=== PATIENT | male | born 1960 | race Caucasian/White ===

== ENCOUNTER 2023-06-15 10:43 | Outpatient (OUT) | payer OTHER, SELFPAY | END 2023-06-15 10:44 | disposition home or self-care (01) | LOC: LAB 10:48 | PROVIDERS: PCP Family Medicine | DX: L40.0 Psoriasis vulgaris (principal) | CPT/HCPCS: 36415; 86480 ==

== ENCOUNTER 2023-06-16 10:29 | Outpatient (OUT) | payer OTHER, SELFPAY ==
[2023-06-19 06:08] LABS: QuantiFERON-TB Gold Plus Negative (Negative)
== END 2023-06-16 10:30 | disposition home or self-care (01) ==
PROVIDERS: PCP Family Medicine
DX: L40.0 Psoriasis vulgaris (principal)
CPT/HCPCS: 36415; 86480